=== PATIENT | female | born 2000 | race American Indian/Alaskan Native ===

== ENCOUNTER 2021-01-28 21:29 | Outpatient (CLI) | payer MEDICAID ==
[2021-01-28 22:35] VITALS: BP 113/69
== END 2021-01-29 01:06 | disposition home or self-care (01) ==
LOC: TRG 21:29 → APU 21:41 → TRG 01-29 01:06
PROVIDERS: ATTEND Obstetrics & Gynecology
DX: Z34.93 Encounter for supervision of normal pregnancy, unspecified, third trimester (principal); Z3A.40 40 weeks gestation of pregnancy
CPT/HCPCS: 59025; Q0177